=== PATIENT | female | born 1940 | race Caucasian/White ===

== ENCOUNTER 2017-07-03 20:03 | Emergency (ER) | payer MEDICARE ==
[~2017-07-03] VITALS: Ht 152.4 cm; Wt 61.5 kg
[~2017-07-03 20:03] MED LIST: ALBU8I; B COTAB3 PO; CALCTAB80 PO; ESTR30V VAGINAL; HYDR25TA35 PO; LACTCAP7 PO; LISI-366 PO; META48.53 PO; METO50TA PO; PRAV20TA67 PO; PROT40TA PO; SPIRCAP INH; STOO100T PO; VITA500C PO
[2017-07-03 20:13] VITALS: BP 190/89; PULSE 71; RESP 18; TEMP 98.6; O2SAT 98
[2017-07-03] MEDS ORDERED: SODIUM CHLOR 0.9% 1000 ML INJ 1,000 ML IV ONE (20:20)
[2017-07-03 20:22] VITALS: O2SAT 98
--- NOTE | 2017-07-03 20:26 | PD ---
HPI Chief Complaint: Syncope/Near-Syncope Time Seen by Provider: 20:20 Travel History International Travel<30 days: No Contact w/Intl Traveler<30days: No Traveled to known affect area: No History of Present Illness HPI The patient is a 76-year-old female that fainted at approximately 7 PM tonight. There was no seizure activity present. She did lose urine. She states fainting is not something that has happened to her before. She denies any palpitations or chest pain or shortness of breath. She denies any vertigo. She does have nausea without vomiting and without diarrhea. She denies any fever. She denies any sore throat, cough or ear pain. She denies any focal neurologic change. She did have one ld around 6 PM tonight. Her primary care physician, Dr. Ashraf, increased her hydralazine from 25 to 50 mg twice daily. She states her blood pressure is almost always high. The patient states he always has a hyponatremia and her doctors already know about this. PFSH Past Medical History Arthritis: Yes Blood Disorders: No Cancer: Yes ( RIGHT LUNG) Cardiovascular Problems: No High Cholesterol: Yes Chemotherapy: No COPD: Yes Diabetes: No Diminished Hearing: No Endocrine: No Gastrointestinal Disorders: Yes GERD: Yes Genitourinary: No Hepatitis: No Hiatal Hernia: Yes (GERD, VALENZUELA'S ESOPH.) Hypertension: Yes Immune Disorder: No Implanted Vascular Access Dvce: Yes Medical other: No Musculoskeletal: Yes (SPINAL STENOSIS, OSTEOPOROSIS, BACK) Neurologic: No Psychiatric: No Reproductive: Yes (PROLAPSE) Respiratory: Yes ( RIGHT LUNG CANCER) Radiation Therapy: No Thyroid Disease: No Tetanus Vaccination: > 5 Years Influenza Vaccination: Yes ?: Not Menopausal: Yes Past Surgical History Abdominal Surgery: No Cardiac Surgery: No Ear Surgery: No Endocrine Surgery: Yes Eye Surgery: No Genitourinary Surgery: No Gynecologic Surgery: Yes (TUBLALIGATION) Joint Replacement: Yes (LEFT KNEE) Neurologic Surgery: Yes Oral Surgery: Yes (TONSILLECTOMY) Pacemaker: No Thoracic Surgery: Yes (BRONCHOSCOPY/ MEDIASTINOSCOPY, LEFT PARTIAL LOBECTOMY) Other Surgery: Yes Social History Alcohol Use: Yes (BEER/ WINE DAILY) Tobacco Use: No Substance Use: No Allergies-Medications (Allergen,Severity, Reaction): Coded Allergies: codeine (Unverified Adverse Reaction, Mild, NAUSEA, 07/03/17) Reported Meds & Prescriptions Reported Meds & Active Scripts Active Reported Spiriva Handihaler (Tiotropium Inh) 18 Mcg Cap 18 Mcg INH DAILY 1 capsule = 18 mcg Pravastatin 20 Mg Tab 20 Mg PO DAILY Protonix (Pantoprazole Sodium) 40 Mg Tab 40 Mg PO DAILY Metoprolol Tartrate 50 Mg Tab 50 Mg PO BID Lisinopril 40 Mg Tab 40 Mg PO BID Hydralazine (Hydralazine HCl) 100 Mg Tab 50 Mg PO BID Take with meals Premarin Vaginal (Estrogens, Conjugated Vaginal) 0.625 Mg/Gm Cream 1 Gm VAGINAL HS B-Complex (B-Complex Vitamins) 1 Cap 1 Tab PO DAILY Ascorbic Acid 500 Mg Tab 500 Mg PO DAILY Proair Hfa 8.5 GM Inh (Albuterol Sulfate) 90 Mcg/Act Aer 2 Puff INH Q4-6H PRN 108 mcg/actuation Review of Systems Except as stated in HPI: all other systems reviewed are Neg Physical Exam Narrative GENERAL: The patient is alert, oriented 3 in no apparent distress except for some minimal nausea. Her vital signs show blood pressure 190/89 but are otherwise normal. SKIN: Focused skin assessment warm/dry. HEAD: Atraumatic. Normocephalic. EYES: Pupils equal and round. No scleral icterus. No injection or drainage. ENT: No nasal bleeding or discharge. Mucous membranes pink and moist. The tympanic membranes are clear and the throat is clear. NECK: Trachea midline. No JVD. There is no meningismus present. CARDIOVASCULAR: Regular rate and rhythm. No murmur appreciated. RESPIRATORY: No accessory muscle use. Clear to auscultation. Breath sounds equal bilaterally. GASTROINTESTINAL: Abdomen soft, non-tender, nondistended. Hepatic and splenic margins not palpable. No guarding or rebound is present. MUSCULOSKELETAL: No obvious deformities. No clubbing. No cyanosis. No edema. NEUROLOGICAL: Awake and alert. No obvious cranial nerve deficits. Motor grossly within normal limits. Normal speech. PSYCHIATRIC: Appropriate mood and affect; insight and judgment normal. Data Data Last Documented VS Vital Signs Date Time Temp Pulse Resp B/P (MAP) Pulse Ox O2 Delivery O2 Flow Rate FiO2 07/03/17 21:43 78 18 148/72 (97) 98 Room Air 07/03/17 20:13 98.6 Orders Orders Electrocardiogram (07/03/17 20:20) Comprehensive Metabolic Panel (07/03/17 20:20) Magnesium (Mg) (07/03/17 20:20) B-Type Natriuretic Peptide (07/03/17 20:20) Troponin I (07/03/17 20:20) Urinalysis - C+S If Indicated (07/03/17 20:20) Ecg Monitoring (07/03/17 20:20) Iv Access Insert/Monitor (07/03/17 20:20) Oximetry (07/03/17 20:20) Sodium Chloride 0.9% Flush (Ns Flush) (07/03/17 20:30) Sodium Chlor 0.9% 1000 Ml Inj (Ns 1000 M (07/03/17 20:20) Orthostatic Vital Signs (07/03/17 20:20) Complete Blood Count With Diff (07/03/17 22:01) Potassium Chloride (Kcl) (07/03/17 22:15) Labs Laboratory Tests Test 07/03/17 20:36 Blood Urea Nitrogen 6 MG/DL Creatinine 0.58 MG/DL Random Glucose 144 MG/DL Total Protein 7.6 GM/DL Albumin 3.8 GM/DL Calcium Level 9.1 MG/DL Magnesium Level 1.8 MG/DL Alkaline Phosphatase 62 U/L Aspartate Amino Transf (AST/SGOT) 17 U/L Alanine Aminotransferase (ALT/SGPT) 17 U/L Total Bilirubin 0.4 MG/DL Sodium Level 124 MEQ/L Potassium Level 3.1 MEQ/L Chloride Level 91 MEQ/L Carbon Dioxide Level 21.8 MEQ/L Anion Gap 11 MEQ/L Estimat Glomerular Filtration Rate 101 ML/MIN Troponin I LESS THAN 0.02 NG/ML B-Type Natriuretic Peptide 209 PG/ML MDM Medical Decision Making Medical Screen Exam Complete: Yes Emergency Medical Condition: Yes Medical Record Reviewed: Yes Interpretation(s) The complete metabolic profile shows a glucose of 144 and sodium of 124 with potassium 3.1 but is otherwise unremarkable. The troponin I is less than 0.02. The BNP is 209. The EKG shows sinus rhythm with a rate of [address] elevation or depression. Differential Diagnosis Postural hypotension, syncopal spell from medication increase (hydralazine), viral syndrome, dehydration, electrolyte disorder, cardiac syncope-unlikely Narrative Course The patient does have an electrolyte disorder but this apparently is chronic. Her sodium of 124 is lower than what her sodium usually runs, the sodium usually is in the 127-128 range. This does not appear to be cardiac syncope, the patient had no symptoms of palpitations, chest pain or shortness of breath with this episode. The patient feels fine now and has not had any near syncopal episodes in the emergency department and wants to go home. She definitely does not want admission although admission was offered for her. If she continues to have syncopal spells she probably will have to be admitted. Diagnosis Primary Impression: Syncope Additional Instructions: As we discussed, follow-up with Dr. Ashraf next week. Your potassium is low as well and I will write a short course of potassium. Med/Other Pt SpecificInfo: Prescription(s) given Scripts Potassium Chloride ER (K-Tab) 20 Meq Tab 20 MEQ PO DAILY for Electrolyte Replacement for 14 Days, #14 TAB 0 Refills Prov: Charles Marti MD 07/03/17 Disposition: 01 DISCHARGE HOME Condition: Stable Charles Marti MD Jul 03, 2017 20:26
[2017-07-03] MEDS ORDERED: SODIUM CHLORIDE 0.9% FLUSH 10 ML FLUSH IVF PRN (20:30)
[2017-07-03 20:47] VITALS: BP_SYST 153; BP_SYST 161; BP_DIAS 78
[2017-07-03] MEDS ORDERED: B-COCAP5 PO (20:53)
[2017-07-03] MEDS ORDERED: ALBUAER3 INH (20:53)
[2017-07-03] MEDS ORDERED: ASCO500T PO (20:53)
[2017-07-03] MEDS ORDERED: ESTR0.62 VAGINAL (21:01)
[2017-07-03] MEDS ORDERED: METO50TA PO (21:01)
[2017-07-03] MEDS ORDERED: PRAV20TA2 PO (21:01)
[2017-07-03] MEDS ORDERED: PROT40TA PO (21:01)
[2017-07-03] MEDS ORDERED: HYDR-3801 PO (21:01)
[2017-07-03] MEDS ORDERED: SPIRCAP INH (21:01)
[2017-07-03] MEDS ORDERED: LISI40TA PO (21:01)
[2017-07-03 21:32] LABS: ALBUMIN 3.8 GM/DL (3.4-5.0); ALKALINE PHOSPHATASE 62 U/L (45-117); ALT (GPT) 17 U/L (10-53); AST (GOT) 17 U/L (15-37); BICARBONATE 21.8 MEQ/L (21.0-32.0); BLOOD UREA NITROGEN 6 MG/DL (7-18); CALCIUM 9.1 MG/DL (8.5-10.1); CHLORIDE 91 MEQ/L (98-107); CREATININE 0.58 MG/DL (0.50-1.00); GLOMERULAR FILTRATION RATE 101 ML/MIN (>89); GLUCOSE,RANDOM 144 MG/DL (74-106); MAGNESIUM 1.8 MG/DL (1.5-2.5); TOTAL BILIRUBIN ADULT 0.4 MG/DL (0.2-1.0); TOTAL PROTEIN 7.6 GM/DL (6.4-8.2); TROPONIN I LESS THAN 0.02 NG/ML (0.02-0.05)
[2017-07-03 21:43] VITALS: BP 148/72; PULSE 78; RESP 18; O2SAT 98
[2017-07-03 21:43] LABS: SODIUM (NA) 124 MEQ/L (136-145)
[2017-07-03] MEDS ORDERED: POTA1TAB4 PO (22:13)
[2017-07-03] MEDS ORDERED: POTASSIUM CHLORIDE 20 MEQ CONTROLLED RELEASE TAB PO ONE (22:15)
[2017-07-03 22:37] VITALS: BP 156/74; PULSE 78; RESP 18; O2SAT 98
--- NOTE | 2017-07-03 23:59 | EKG ---
Date Performed: 07/03/2017 Time Performed: 20:57:38 PTAGE: 76 years EKG: Sinus rhythm WITH FIRST DEGREE AV BLOCK POSSIBLE LEFT ATRIAL ENLARGEMENT SEPTAL MYOCARDIAL INFARCTION ABNORMAL EC G PREVIOUS TRACING : 11/17/2011 17.54 Compared to previous tracing, previously AFib with RVR and ST/T wave changes DOCTOR: Braden Otero Interpretating Date/Time 07/03/2017 23:58:26
[2017-07-04 01:41] LABS: AUTOMATED NEUTROPHIL # 3.7 TH/MM3 (1.8-7.7); BASOPHIL # 0.1 TH/MM3 (0-0.2); BASOPHIL % 1.9 % (0.0-2.0); EOSINOPHIL # 0.5 TH/MM3 (0-0.4); EOSINOPHIL % 6.9 % (0.0-4.0); HEMATOCRIT 32.9 % (35.0-46.0); HEMOGLOBIN 11.6 GM/DL (11.6-15.3); LYMPH % 30.2 % (9.0-44.0); LYMPHOCYTE # 2.2 TH/MM3 (1.0-4.8); MEAN CELL VOLUME 98.7 FL (80.0-100.0); MEAN CORPUSCULAR HEMOGLOBIN 34.8 PG (27.0-34.0); MEAN CORPUSCULAR HGB CONC 35.3 % (32.0-36.0); MEAN PLATELET VOLUME 8.6 FL (7.0-11.0); MONO % 9.3 % (0.0-8.0); MONOCYTE # 0.7 TH/MM3 (0-0.9); NEUT % 51.7 % (16.0-70.0); PLATELET COUNT 302 TH/MM3 (150-450); RED BLOOD COUNT 3.33 MIL/MM3 (4.00-5.30); RED CELL DISTRIBUTION WIDTH 12.4 % (11.6-17.2); WHITE BLOOD COUNT 7.2 TH/MM3 (4.0-11.0)
== END 2017-07-03 22:39 | disposition home or self-care (01) ==
LOC: PHED 20:03
DX: R55 Syncope and collapse (principal); R94.31 Abnormal electrocardiogram [ECG] [EKG]; E87.1 Hypo-osmolality and hyponatremia; E78.00 Pure hypercholesterolemia, unspecified; I10 Essential (primary) hypertension; J44.9 Chronic obstructive pulmonary disease, unspecified; K21.9 Gastro-esophageal reflux disease without esophagitis; M81.0 Age-related osteoporosis without current pathological fracture; Z85.118 Personal history of other malignant neoplasm of bronchus and lung
CPT/HCPCS: 80053; 83735; 83880; 84484; 85025; 93005; 96360; 99284; J7030